=== PATIENT | male | born 1950 | race Caucasian/White ===

== ENCOUNTER 2020-08-21 12:07 | Inpatient (IN) | payer MEDICARE, BC ==
[~2020-08-21] VITALS: Ht 180.3 cm; Wt 107.8 kg
[2020-08-21] MEDS ORDERED: SODIUM CHLORIDE 0.9% 500 ML IV ONE (13:00)
[2020-08-21 14:07] LABS: Basophils # (auto) 0 10 ^3/uL (0-0.2); Basophils % (auto) 0.3 % (0.0-2.0); Eosinophils # (auto) 0 10 ^3/uL (0-0.8); Hematocrit 44.6 % (41.0-53.0); Hemoglobin 15.8 g/dL (13.5-17.5); Lymphocytes # (auto) 0.8 10 ^3/uL (0.4-5.4); Lymphocytes % (auto) 9.3 % (10.0-50.0); Mean Corpuscular Hemoglobin 32.5 pg (28.0-32.0); Mean Corpuscular Hgb Conc. 35.4 g/dL (32.0-36.0); Mean Corpuscular Volume 91.9 fL (80.0-100.0); Monocytes # (auto) 0.7 10 ^3/uL (0-1.3); Monocytes % (auto) 7.8 % (0.0-12.0); Neutrophils # (auto) 6.9 10 ^3/uL (1.6-8.6); Neutrophils % (auto) 82.6 % (37.0-80.0); Nucleated Red Blood Cells % 0.1 %; Platelet Count (auto) 253 10^3/uL (140-450); Red Blood Cells 4.85 10^6/uL (4.5-5.90); Red Cell Distribution Width 12.8 % (11.8-14.3); White Blood Cell 8.4 10^3/uL (4.4-10.8)
[2020-08-21 14:27] LABS: Alanine Aminotransferase 41 U/L (16-61); Albumin 3.5 g/dL (3.4-5.0); Anion Gap 6 (5-15); Aspartate Aminotransferase 63 U/L (15-37); BUN/Creatinine Ratio 19.1; Blood Urea Nitrogen 18 mg/dL (7-18); Calcium 8.3 mg/dL (8.5-10.1); Carbon Dioxide 25 mmol/L (21-32); Chloride 102 mmol/L (98-107); GFR African American 102 mL/min; GFR Non-African American 85 mL/min; Glucose 108 mg/dL (74-106); Potassium 4.4 mmol/L (3.5-5.1); Sodium 133 mmol/L (136-145)
[2020-08-21 14:32] LABS: Alkaline Phosphatase 72 U/L (45-117); Bilirubin, Total 1.2 mg/dL (0.2-1.0); Total Protein 7.7 g/dL (6.4-8.2)
[2020-08-21] MEDS ORDERED: cefTRIAXone 1GM/50ML D5W 50 ML IV ONE (15:45)
[2020-08-21] MEDS ORDERED: MORPHINE SULF INJ 2 MG/ML SYRINGE 1ML IV PRN ×2 (16:15→17:00)
[2020-08-21] MEDS ORDERED: NITROGLYCERIN 0.4 MG SL TAB SL PRN (16:15)
[2020-08-21 16:24] LABS: Lactic Acid w/Reflex 2.2 mmol/L (0.4-2.0)
[2020-08-21] MEDS ORDERED: AZITHROMYCIN 500MG/ 250ML 250 ML IV ONE (16:30)
[2020-08-21] MEDS ORDERED: TEMAZEPAM 15 MG CAP PO PRN (17:00)
[2020-08-21] MEDS ORDERED: LACTULOSE 20Gm/30ML SOLN PO PRN (17:00)
[2020-08-21] MEDS ORDERED: PROMETHAZINE HCL 25 MG/ML 1ML IV PRN (17:00)
[2020-08-21] MEDS ORDERED: ACETAMINOPHEN 500 MG TAB PO PRN (17:00)
[2020-08-21] MEDS ORDERED: REMDESIVIR PER PHARMACY 0 ML IV SCH (17:00)
[2020-08-21] MEDS ORDERED: diphenhdrAMINE HCL 50 MG/1 ML VL IV PRN (17:00)
[2020-08-21] MEDS ORDERED: chlordiazePOXIDE HCL 25 MG CAP PO PRN (19:30)
[2020-08-21] MEDS ORDERED: THIAMINE 100mg/ml INJ (200mg/2ml VIAL) IV ONE (19:30)
[2020-08-21] MEDS ORDERED: REMDESIVIR 200 MG in NS 210ml LOADING DOSE ADULT IV ONE (20:00)
[2020-08-21] MEDS: FAMOTIDINE (10MG/ML) 2ML VL IV SCH (23:00)
[2020-08-21] MEDS: BUDESONIDE (INHALATION) 180 MCG IH IN SCH (23:00)
[2020-08-21] MEDS: ENOXAPARIN SOD 40 MG/0.4 ML SYRINGE SC SCH (23:01)
[2020-08-22] MEDS: chlordiazePOXIDE HCL 5 MG CAP PO SCH ×4 (00:02→18:00)
[2020-08-22] MEDS: ALBUTEROL SULF HFA 90MCG INH 200DOSE IN PRN ×2 (01:10→10:15)
[2020-08-22] MEDS: traMADol HCL 50 MG TAB PO PRN (06:01)
[2020-08-22 08:12] LABS: Basophils # (auto) 0 10 ^3/uL (0-0.2); Basophils % (auto) 0.3 % (0.0-2.0); Eosinophils # (auto) 0 10 ^3/uL (0-0.8); Hemoglobin 14.9 g/dL (13.5-17.5); Lymphocytes # (auto) 0.7 10 ^3/uL (0.4-5.4); Lymphocytes % (auto) 9.6 % (10.0-50.0); Mean Corpuscular Hemoglobin 32.4 pg (28.0-32.0); Mean Corpuscular Hgb Conc. 34.7 g/dL (32.0-36.0); Mean Corpuscular Volume 93.2 fL (80.0-100.0); Monocytes # (auto) 0.7 10 ^3/uL (0-1.3); Monocytes % (auto) 9.4 % (0.0-12.0); Neutrophils # (auto) 5.8 10 ^3/uL (1.6-8.6); Neutrophils % (auto) 80.7 % (37.0-80.0); Platelet Count (auto) 262 10^3/uL (140-450); Red Blood Cells 4.61 10^6/uL (4.5-5.90); Red Cell Distribution Width 12.9 % (11.8-14.3); White Blood Cell 7.1 10^3/uL (4.4-10.8)
[2020-08-22 08:34] LABS: Albumin 2.9 g/dL (3.4-5.0); Calcium 8.3 mg/dL (8.5-10.1); Potassium 3.8 mmol/L (3.5-5.1)
[2020-08-22 09:11] LABS: BUN/Creatinine Ratio 17.3; Bilirubin, Total 1.4 mg/dL (0.2-1.0); Total Protein 7.4 g/dL (6.4-8.2)
[2020-08-22] MEDS: FAMOTIDINE (10MG/ML) 2ML VL IV SCH (09:20)
[2020-08-22] MEDS: DexAMETHasone SOD PHOS 10MG/1ML VIAL INJ IV SCH (09:20)
[2020-08-22] MEDS: CHOLECALCIFEROL (VITD3) 2,000 UNIT CAP PO SCH (09:20)
[2020-08-22] MEDS: ZINC SULFATE 220mg CAP or TAB PO SCH (09:20)
[2020-08-22] MEDS: ASCORBIC ACID 1,000 MG TAB PO SCH (09:20)
[2020-08-22] MEDS: ENOXAPARIN SOD 40 MG/0.4 ML SYRINGE SC SCH ×2 (09:20→22:00)
[2020-08-22] MEDS: THIAMINE 100mg/ml INJ (200mg/2ml VIAL) IV SCH (09:20)
[2020-08-22] MEDS ORDERED: levoFLOXacin 500MG 100 ML IV SCH (10:00)
[2020-08-22] MEDS: BUDESONIDE (INHALATION) 180 MCG IH IN SCH ×2 (10:15→21:20)
[2020-08-22] MEDS: REMDESIVIR 100 MG in SODIUM CHL 0.9% 250 ML IV SCH (15:00)
[2020-08-22 22:00] VITALS: BP 148/101
[2020-08-23] VITALS (8 sets, daily range): BP systolic 126–150; BP diastolic 77–100
[2020-08-23] MEDS: DOXYCYCLINE 100 MG TAB/CAP PO SCH ×3 (00:52→22:46)
[2020-08-23] MEDS: FAMOTIDINE (10MG/ML) 2ML VL IV SCH ×3 (00:52→22:46)
[2020-08-23] MEDS: chlordiazePOXIDE HCL 5 MG CAP PO SCH ×4 (00:53→17:55)
[2020-08-23] MEDS ORDERED: LOSA-39 PO (01:56)
[2020-08-23] MEDS ORDERED: ATEN-60 PO (01:56)
[2020-08-23] MEDS ORDERED: FELO10TA3 PO (01:56)
[2020-08-23] MEDS ORDERED: OMEP20TA PO (01:56)
[2020-08-23] MEDS ORDERED: FINA5TAB4 PO (01:56)
[2020-08-23] MEDS ORDERED: TAMS0.4C36 PO (01:56)
[2020-08-23] MEDS: BUDESONIDE (INHALATION) 180 MCG IH IN SCH ×2 (06:33→18:43)
[2020-08-23 07:28] LABS: Basophils # (auto) 0 10 ^3/uL (0-0.2); Basophils % (auto) 0.3 % (0.0-2.0); Eosinophils # (auto) 0 10 ^3/uL (0-0.8); Eosinophils % (auto) 0.1 % (0.0-7.0); Hematocrit 42.3 % (41.0-53.0); Hemoglobin 14.7 g/dL (13.5-17.5); Lymphocytes # (auto) 0.7 10 ^3/uL (0.4-5.4); Lymphocytes % (auto) 8.7 % (10.0-50.0); Mean Corpuscular Hemoglobin 32.3 pg (28.0-32.0); Mean Corpuscular Hgb Conc. 34.7 g/dL (32.0-36.0); Mean Corpuscular Volume 93.2 fL (80.0-100.0); Monocytes # (auto) 0.7 10 ^3/uL (0-1.3); Monocytes % (auto) 8.3 % (0.0-12.0); Neutrophils # (auto) 6.9 10 ^3/uL (1.6-8.6); Neutrophils % (auto) 82.6 % (37.0-80.0); Platelet Count (auto) 290 10^3/uL (140-450); Red Blood Cells 4.54 10^6/uL (4.5-5.90); Red Cell Distribution Width 12.8 % (11.8-14.3); White Blood Cell 8.3 10^3/uL (4.4-10.8)
[2020-08-23 07:38] LABS: Calcium 8.2 mg/dL (8.5-10.1); Magnesium 2.4 mg/dL (1.6-2.6); Potassium 3.4 mmol/L (3.5-5.1)
[2020-08-23 07:49] LABS: Albumin 2.8 g/dL (3.4-5.0); BUN/Creatinine Ratio 23.6; Bilirubin, Total 1.2 mg/dL (0.2-1.0); CRP High Sensitivity 11.5 mg/dL (< 0.3); Total Protein 7.1 g/dL (6.4-8.2)
[2020-08-23] MEDS: CHOLECALCIFEROL (VITD3) 2,000 UNIT CAP PO SCH (09:14)
[2020-08-23] MEDS: FOLIC ACID 1 MG TAB PO SCH (09:14)
[2020-08-23] MEDS: MULTIPLE VITAMINS W/ MINERALS TAB PO SCH (09:15)
[2020-08-23] MEDS: ZINC SULFATE 220mg CAP or TAB PO SCH (09:15)
[2020-08-23] MEDS: ASCORBIC ACID 1,000 MG TAB PO SCH (09:15)
[2020-08-23] MEDS: ENOXAPARIN SOD 40 MG/0.4 ML SYRINGE SC SCH (09:16)
[2020-08-23] MEDS: FUROSEMIDE 20 MG/2 ML VIAL IV SCH (09:16)
[2020-08-23] MEDS: THIAMINE 100mg/ml INJ (200mg/2ml VIAL) IV SCH (09:17)
[2020-08-23] MEDS: DexAMETHasone SOD PHOS 10MG/1ML VIAL INJ IV SCH (09:17)
[2020-08-23] MEDS ORDERED: ENOXAPARIN SOD 80 MG/0.8ML SYRINGE SC ONE (10:15)
[2020-08-23] MEDS ORDERED: POTASSIUM CHL 20 Meq TABLET PO ONE (10:15)
[2020-08-23] MEDS ORDERED: amLODIPine BESYLATE 5 MG TAB PO ONE (14:30)
[2020-08-23] MEDS ORDERED: ATENOLOL 50 MG TAB PO ONE (14:30)
[2020-08-23] MEDS: REMDESIVIR 100 MG in SODIUM CHL 0.9% 250 ML IV SCH (15:00)
[2020-08-23] MEDS: ALBUTEROL SULF HFA 90MCG INH 200DOSE IN PRN (18:43)
[2020-08-23] MEDS: traMADol HCL 50 MG TAB PO PRN (19:43)
[2020-08-23] MEDS: ENOXAPARIN SOD 120 MG/0.8 ML SYRINGE SC SCH (22:46)
[2020-08-24] MEDS: chlordiazePOXIDE HCL 5 MG CAP PO SCH ×5 (00:21→23:21)
[2020-08-24 05:00] VITALS: BP 146/89
[2020-08-24] MEDS: ALBUTEROL SULF HFA 90MCG INH 200DOSE IN PRN ×2 (06:33→19:23)
[2020-08-24 07:15] LABS: Basophils # (auto) 0 10 ^3/uL (0-0.2); Basophils % (auto) 0.2 % (0.0-2.0); Eosinophils # (auto) 0 10 ^3/uL (0-0.8); Eosinophils % (auto) 0.1 % (0.0-7.0); Hematocrit 44.1 % (41.0-53.0); Hemoglobin 15.3 g/dL (13.5-17.5); Lymphocytes # (auto) 1.1 10 ^3/uL (0.4-5.4); Mean Corpuscular Hemoglobin 32.4 pg (28.0-32.0); Mean Corpuscular Hgb Conc. 34.7 g/dL (32.0-36.0); Mean Corpuscular Volume 93.2 fL (80.0-100.0); Monocytes # (auto) 0.8 10 ^3/uL (0-1.3); Monocytes % (auto) 7.6 % (0.0-12.0); Neutrophils # (auto) 8.8 10 ^3/uL (1.6-8.6); Neutrophils % (auto) 82.1 % (37.0-80.0); Nucleated Red Blood Cells % 0.1 %; Platelet Count (auto) 380 10^3/uL (140-450); Red Blood Cells 4.73 10^6/uL (4.5-5.90); Red Cell Distribution Width 12.7 % (11.8-14.3); White Blood Cell 10.8 10^3/uL (4.4-10.8)
[2020-08-24 07:41] LABS: Calcium 8.8 mg/dL (8.5-10.1); Potassium 3.6 mmol/L (3.5-5.1)
[2020-08-24 07:43] LABS: BUN/Creatinine Ratio 25.3
[2020-08-24 07:46] LABS: Total Protein 7.5 g/dL (6.4-8.2)
[2020-08-24 09:00] VITALS: BP 137/92
[2020-08-24] MEDS ORDERED: ERGOCALCIFEROL 50,000 UNIT(1.25MG) CAP PO SCH (10:00)
[2020-08-24] MEDS: ENOXAPARIN SOD 120 MG/0.8 ML SYRINGE SC SCH ×2 (10:19→22:33)
[2020-08-24] MEDS: FAMOTIDINE (10MG/ML) 2ML VL IV SCH ×2 (10:19→22:32)
[2020-08-24] MEDS: THIAMINE 100mg/ml INJ (200mg/2ml VIAL) IV SCH (10:19)
[2020-08-24] MEDS: FUROSEMIDE 20 MG/2 ML VIAL IV SCH (10:19)
[2020-08-24] MEDS: DexAMETHasone SOD PHOS 10MG/1ML VIAL INJ IV SCH (10:19)
[2020-08-24] MEDS: FOLIC ACID 1 MG TAB PO SCH (10:20)
[2020-08-24] MEDS: DOXYCYCLINE 100 MG TAB/CAP PO SCH ×2 (10:20→22:32)
[2020-08-24] MEDS: ZINC SULFATE 220mg CAP or TAB PO SCH (10:20)
[2020-08-24] MEDS: MULTIPLE VITAMINS W/ MINERALS TAB PO SCH (10:20)
[2020-08-24] MEDS: FINASTERIDE 5 MG TAB PO SCH (10:20)
[2020-08-24] MEDS: LOSARTAN POTASSIUM 50 MG TAB PO SCH (10:21)
[2020-08-24] MEDS: amLODIPine BESYLATE 5 MG TAB PO SCH (10:21)
[2020-08-24] MEDS: ATENOLOL 50 MG TAB PO SCH (10:22)
[2020-08-24] MEDS: CHOLECALCIFEROL (VITD3) 2,000 UNIT CAP PO SCH (10:22)
[2020-08-24] MEDS: ASCORBIC ACID 1,000 MG TAB PO SCH (10:22)
[2020-08-24 13:00] VITALS: BP 113/88
[2020-08-24] MEDS: REMDESIVIR 100 MG in SODIUM CHL 0.9% 250 ML IV SCH (15:05)
[2020-08-24 17:00] VITALS: BP 124/86
[2020-08-24] MEDS: BUDESONIDE (INHALATION) 180 MCG IH IN SCH (19:23)
[2020-08-24 21:45] VITALS: BP 133/81
[2020-08-24] MEDS: traMADol HCL 50 MG TAB PO PRN (22:37)
[2020-08-25 05:00] VITALS: BP 126/79
[2020-08-25] MEDS: BUDESONIDE (INHALATION) 180 MCG IH IN SCH ×2 (06:36→21:01)
[2020-08-25] MEDS: ALBUTEROL SULF HFA 90MCG INH 200DOSE IN PRN ×2 (06:36→21:01)
[2020-08-25] MEDS: chlordiazePOXIDE HCL 5 MG CAP PO SCH ×4 (06:47→23:46)
[2020-08-25 06:57] LABS: Potassium 3.6 mmol/L (3.5-5.1)
[2020-08-25 07:29] LABS: Albumin 2.9 g/dL (3.4-5.0); BUN/Creatinine Ratio 24.4; Bilirubin, Total 1.1 mg/dL (0.2-1.0); Calcium 8.5 mg/dL (8.5-10.1); Total Protein 7.4 g/dL (6.4-8.2)
[2020-08-25 08:30] VITALS: BP 129/82
[2020-08-25] MEDS: DexAMETHasone SOD PHOS 10MG/1ML VIAL INJ IV SCH (10:20)
[2020-08-25] MEDS: THIAMINE 100mg/ml INJ (200mg/2ml VIAL) IV SCH (10:20)
[2020-08-25] MEDS: ZINC SULFATE 220mg CAP or TAB PO SCH (10:21)
[2020-08-25] MEDS: FUROSEMIDE 20 MG/2 ML VIAL IV SCH (10:21)
[2020-08-25] MEDS: FOLIC ACID 1 MG TAB PO SCH (10:21)
[2020-08-25] MEDS: FAMOTIDINE (10MG/ML) 2ML VL IV SCH ×2 (10:21→22:51)
[2020-08-25] MEDS: amLODIPine BESYLATE 5 MG TAB PO SCH (10:22)
[2020-08-25] MEDS: LOSARTAN POTASSIUM 50 MG TAB PO SCH (10:22)
[2020-08-25] MEDS: MULTIPLE VITAMINS W/ MINERALS TAB PO SCH (10:22)
[2020-08-25] MEDS: FINASTERIDE 5 MG TAB PO SCH (10:22)
[2020-08-25] MEDS: ATENOLOL 50 MG TAB PO SCH (10:23)
[2020-08-25] MEDS: DOXYCYCLINE 100 MG TAB/CAP PO SCH ×2 (10:23→22:51)
[2020-08-25] MEDS: ASCORBIC ACID 1,000 MG TAB PO SCH (10:23)
[2020-08-25] MEDS: ENOXAPARIN SOD 120 MG/0.8 ML SYRINGE SC SCH ×2 (10:24→22:51)
[2020-08-25] MEDS: CHOLECALCIFEROL (VITD3) 2,000 UNIT CAP PO SCH (10:24)
[2020-08-25] MEDS ORDERED: LOPERAMIDE HCL 2 MG CAP PO ONE (13:30)
[2020-08-25] MEDS: REMDESIVIR 100 MG in SODIUM CHL 0.9% 250 ML IV SCH (15:40)
[2020-08-25 16:16] VITALS: BP 121/73
[2020-08-25] MEDS: traMADol HCL 50 MG TAB PO PRN (20:51)
[2020-08-25 22:00] VITALS: BP 130/80
[2020-08-26 05:25] VITALS: BP 113/77
[2020-08-26] MEDS: chlordiazePOXIDE HCL 5 MG CAP PO SCH ×3 (06:24→17:46)
[2020-08-26 06:29] LABS: Potassium 4.5 mmol/L (3.5-5.1)
[2020-08-26 06:44] LABS: Albumin 2.8 g/dL (3.4-5.0); Calcium 8.6 mg/dL (8.5-10.1); Total Protein 7.2 g/dL (6.4-8.2)
[2020-08-26 09:00] VITALS: BP 106/81
[2020-08-26] MEDS: THIAMINE 100mg/ml INJ (200mg/2ml VIAL) IV SCH (10:14)
[2020-08-26] MEDS: DexAMETHasone SOD PHOS 10MG/1ML VIAL INJ IV SCH (10:14)
[2020-08-26] MEDS: FUROSEMIDE 20 MG/2 ML VIAL IV SCH (10:14)
[2020-08-26] MEDS: FAMOTIDINE (10MG/ML) 2ML VL IV SCH ×2 (10:14→22:00)
[2020-08-26] MEDS: ZINC SULFATE 220mg CAP or TAB PO SCH (10:15)
[2020-08-26] MEDS: LOSARTAN POTASSIUM 50 MG TAB PO SCH (10:15)
[2020-08-26] MEDS: FOLIC ACID 1 MG TAB PO SCH (10:15)
[2020-08-26] MEDS: FINASTERIDE 5 MG TAB PO SCH (10:16)
[2020-08-26] MEDS: amLODIPine BESYLATE 5 MG TAB PO SCH (10:16)
[2020-08-26] MEDS: MULTIPLE VITAMINS W/ MINERALS TAB PO SCH (10:16)
[2020-08-26] MEDS: ENOXAPARIN SOD 120 MG/0.8 ML SYRINGE SC SCH ×2 (10:17→22:00)
[2020-08-26] MEDS: DOXYCYCLINE 100 MG TAB/CAP PO SCH ×2 (10:17→22:00)
[2020-08-26] MEDS: ATENOLOL 50 MG TAB PO SCH (10:17)
[2020-08-26] MEDS: CHOLECALCIFEROL (VITD3) 2,000 UNIT CAP PO SCH (10:17)
[2020-08-26] MEDS: ASCORBIC ACID 1,000 MG TAB PO SCH (10:17)
[2020-08-26] MEDS: BUDESONIDE (INHALATION) 180 MCG IH IN SCH ×2 (11:25→22:00)
[2020-08-26] MEDS ORDERED: LOPERAMIDE HCL 2 MG CAP PO ONE (12:15)
[2020-08-26 15:55] VITALS: BP 107/63
[2020-08-26 21:42] VITALS: BP 110/64
[2020-08-27] MEDS: chlordiazePOXIDE HCL 5 MG CAP PO SCH ×3 (02:04→12:00)
[2020-08-27 04:45] VITALS: BP 111/71
[2020-08-27 08:00] VITALS: BP 110/77
[2020-08-27] MEDS: THIAMINE 100mg/ml INJ (200mg/2ml VIAL) IV SCH (10:45)
[2020-08-27] MEDS: BUDESONIDE (INHALATION) 180 MCG IH IN SCH (10:45)
[2020-08-27] MEDS: DexAMETHasone SOD PHOS 10MG/1ML VIAL INJ IV SCH (10:45)
[2020-08-27] MEDS: LOSARTAN POTASSIUM 50 MG TAB PO SCH (10:46)
[2020-08-27] MEDS: FUROSEMIDE 20 MG/2 ML VIAL IV SCH (10:46)
[2020-08-27] MEDS: CHOLECALCIFEROL (VITD3) 2,000 UNIT CAP PO SCH (10:47)
[2020-08-27] MEDS: amLODIPine BESYLATE 5 MG TAB PO SCH (10:47)
[2020-08-27] MEDS: ASCORBIC ACID 1,000 MG TAB PO SCH (10:47)
[2020-08-27] MEDS: ATENOLOL 50 MG TAB PO SCH (10:47)
[2020-08-27] MEDS: DOXYCYCLINE 100 MG TAB/CAP PO SCH (10:47)
[2020-08-27] MEDS: FINASTERIDE 5 MG TAB PO SCH (10:47)
[2020-08-27] MEDS: MULTIPLE VITAMINS W/ MINERALS TAB PO SCH (10:48)
[2020-08-27] MEDS: FAMOTIDINE (10MG/ML) 2ML VL IV SCH (10:48)
[2020-08-27] MEDS: FOLIC ACID 1 MG TAB PO SCH (10:48)
[2020-08-27] MEDS: ENOXAPARIN SOD 120 MG/0.8 ML SYRINGE SC SCH (10:48)
[2020-08-27] MEDS: ZINC SULFATE 220mg CAP or TAB PO SCH (10:48)
[2020-08-27 13:34] VITALS: BP 110/77
== END 2020-08-27 14:35 | disposition home or self-care (01) | DRG 177 ==
LOC: EDBD 12:07 → ER 12:07 → TELE 16:11 → TELE-EAST 08-22 22:59
PROVIDERS: ADMIT Internal Medicine; ATTEND Internal Medicine
PROC: XW033E5 Introduction of Remdesivir Anti-infective into Peripheral Vein, Percutaneous Approach, New Technology Group 5 (ICD-10-PCS; 2020-08-21)
PROC: XW13325 Transfusion of Convalescent Plasma (Nonautologous) into Peripheral Vein, Percutaneous Approach, New Technology Group 5 (ICD-10-PCS; principal; 2020-08-23)
DX: U07.1 COVID-19 (principal); J12.89 Other viral pneumonia; J96.01 Acute respiratory failure with hypoxia; E87.1 Hypo-osmolality and hyponatremia; E44.0 Moderate protein-calorie malnutrition; D68.59 Other primary thrombophilia; E66.9 Obesity, unspecified; I10 Essential (primary) hypertension; E55.9 Vitamin D deficiency, unspecified; F10.10 Alcohol abuse, uncomplicated; Z68.33 Body mass index [BMI] 33.0-33.9, adult; Z79.899 Other long term (current) drug therapy
CPT/HCPCS: 36415; 71045; 80053; 82306; 82728; 83605; 83615; 83735; 83880; 84484; 85025; 85379; 86141; 86850; 86900; 86901; 87040; 87426; 94640; 96361; 96365; 96367; 96375; G0378; J0696; J1100; J1956; J3490

== ENCOUNTER 2023-06-04 09:39 | Inpatient (IN) | payer MEDICARE, BC ==
[2023-05-31 14:08] LABS: Basophils # (auto) 0.1 10 ^3/uL (0-0.2); Basophils % (auto) 1.2 % (0.0-2.0); Eosinophils # (auto) 0.1 10 ^3/uL (0-0.8); Monocytes # (auto) 0.6 10 ^3/uL (0-1.3); Neutrophils # (auto) 3.5 10 ^3/uL (1.6-8.6); Nucleated Red Blood Cells % 0.1 %; Red Cell Distribution Width 12.8 % (11.8-14.3)
[2023-05-31 14:09] LABS: Eosinophils % (auto) 2.4 % (0.0-7.0); Hematocrit 43.9 % (41.0-53.0); Hemoglobin 15.6 g/dL (13.5-17.5); Lymphocytes # (auto) 1.8 10 ^3/uL (0.4-5.4); Mean Corpuscular Hemoglobin 34.1 pg (28.0-32.0); Mean Corpuscular Hgb Conc. 35.7 g/dL (32.0-36.0); Mean Corpuscular Volume 95.7 fL (80.0-100.0); Monocytes % (auto) 10.2 % (0.0-12.0); Neutrophils % (auto) 57.2 % (37.0-80.0); Red Blood Cells 4.59 10^6/uL (4.5-5.90)
[2023-05-31 14:22] LABS: INR 1.04 (0.9-1.15); Partial Thromboplastin Time 27.4 SEC (24.5-34.5); Prothrombin Time 10.9 sec (9.3-11.8)
[2023-05-31 14:30] LABS: Urine Bacteria NONE SEEN /hpf (None Seen); Urine Blood Negative /uL (Negative); Urine Clarity Clear (Clear); Urine Color Yellow (Yellow); Urine Protein, UAD Negative (Negative); Urine Specific Gravity 1.018 (1.001-1.035); Urine Urobilinogen Normal (Negative); Urine WBC 1 /hpf (0 - 3); Urine pH 5.5 (5.0-8.0)
[2023-05-31 14:37] LABS: Alanine Aminotransferase 83 U/L (7-40); Albumin 4.7 g/dL (3.2-4.8); Alkaline Phosphatase 68 U/L (46-116); Anion Gap 6 (5-15); Aspartate Aminotransferase 53 U/L (13-40); BUN/Creatinine Ratio 13.8 (10.0-20.0); Blood Urea Nitrogen 12 mg/dL (9-23); Calcium 9.3 mg/dL (8.7-10.4); Carbon Dioxide 27 mmol/L (20-30); Chloride 107 mmol/L (98-107); Glucose 130 mg/dL (74-106); Potassium 4.1 mmol/L (3.5-5.1); Sodium 140 mmol/L (136-145)
[2023-05-31 14:38] LABS: Bilirubin, Total 0.8 mg/dL (0.2-1.0); Total Protein 7.4 g/dL (5.7-8.2)
[~2023-06-04] VITALS: Ht 180.3 cm; Wt 110.5 kg
[~2023-06-04 09:39] MED LIST: ATEN-60 PO; FELO10TA28 PO; FINA5TAB4 PO; LOSA100T58 PO; OMEP20TA PO; TAMS0.4C36 PO
[2023-06-04] MEDS ORDERED: ceFAZolin 1GM/50ML 100 ML IV ONE (09:54)
[2023-06-04] MEDS ORDERED: ceFAZolin 1GM/50ML 50 ML IV ONE (09:59)
[2023-06-04] MEDS ORDERED: LIDOCAINE W/ EPINEPHRINE 1% 20ML VIAL ONE ×4 (12:27→14:29)
[2023-06-04] MEDS ORDERED: TRANEXAMIC ACID 20 ML ONE (12:27)
[2023-06-04] MEDS ORDERED: fentaNYL CITRATE 100 MCG/2 ML VL ONE ×4 (12:47→15:50)
[2023-06-04] MEDS ORDERED: PROPOFOL 10 MG/ML 20 ML IV ONE ×3 (12:48→16:26)
[2023-06-04] MEDS ORDERED: SUCCINYLCHOLINE CHLORIDE 20 MG/ML 10ML VIAL IV ONE (12:54)
[2023-06-04] MEDS ORDERED: ONDANSETRON HCL 4 MG/2 ML VIAL ONE ×2 (14:18→15:59)
[2023-06-04] MEDS ORDERED: ePHEDrine SULFATE 50 MG/ML AMP ONE (14:21)
[2023-06-04] MEDS ORDERED: SODIUM CHLORIDE LOCK 10 ML ONE (15:51)
[2023-06-04] MEDS ORDERED: DexAMETHasone SOD PHOS 10MG/1ML VIAL INJ ONE (15:59)
[2023-06-04] MEDS ORDERED: MORPHINE SULFATE INJ 2 MG/ml SYRG IV PRN (17:00)
[2023-06-04] MEDS ORDERED: HYDROcodone-ACET 10/325MG TAB PO PRN (17:00)
[2023-06-04] MEDS ORDERED: ceFAZolin 1GM/50ML 50 ML IV SCH (17:00)
[2023-06-04] MEDS ORDERED: NITROGLYCERIN 0.4 MG SL TAB SL PRN (17:00)
[2023-06-04] MEDS ORDERED: ACETAMINOPHEN 325 MG TAB PO PRN (17:00)
[2023-06-04 17:06] VITALS: O2SAT 96
[2023-06-04] MEDS ORDERED: NALOXONE HCL 0.4 MG/ML VIAL IV PRN (17:15)
[2023-06-04] MEDS ORDERED: hydrALAZINE HCL 20 MG/ML VL IV PRN ×2 (17:15→18:30)
[2023-06-04] MEDS ORDERED: fentaNYL CITRATE 100 MCG/2 ML VL IV PRN (17:15)
[2023-06-04] MEDS ORDERED: LABETALOL HCL 5 MG/ML 4ML SYRINGE IV PRN (17:15)
[2023-06-04] MEDS ORDERED: ePHEDrine SULFATE 50 MG/ML AMP IV PRN (17:15)
[2023-06-04] MEDS ORDERED: FLUMAZENIL 0.1 MG/ML INJ 10ML MDV IV PRN (17:15)
[2023-06-04] MEDS ORDERED: ONDANSETRON HCL 4 MG/2 ML VIAL IV PRN (17:15)
[2023-06-04] MEDS ORDERED: HYDROmorphone HCL 2 MG/ML VL/or syr IV PRN (17:15)
[2023-06-04] MEDS: CYCLOBENZAPRINE HCL 10 MG TAB PO SCH (17:30)
[2023-06-04] MEDS: oxyCODONE HCL 5MG TAB PO PRN (17:34)
[2023-06-04] MEDS ORDERED: LOSARTAN POTASSIUM 50 MG TAB PO ONE (17:45)
[2023-06-04] MEDS ORDERED: TAMSULOSIN HYDROCHLORIDE 0.4 MG CAP PO SCH (18:00)
[2023-06-04 18:35] VITALS: BP 130/75; PULSE 66; RESP 18; TEMP 98; O2SAT 96
[2023-06-04 20:00] VITALS: BP 130/75; PULSE 66; PULSE 71; RESP 18; TEMP 98
[2023-06-04] MEDS: TAMSULOSIN HYDROCHLORIDE 0.4 MG CAP PO SCH (20:37)
[2023-06-04] MEDS: D5W/SOD CHLO 0.9% 1,000 ML IV SCH (20:39)
[2023-06-04] MEDS: ceFAZolin 1GM/50ML 50 ML IV SCH (20:40)
[2023-06-04] MEDS: DOCUSATE SOD 100 MG CAP PO SCH (20:42)
[2023-06-04 22:00] VITALS: BP 144/86; PULSE 76; RESP 17; TEMP 97.1; O2SAT 96
[2023-06-05] VITALS (7 sets, daily range): BP systolic 107–134; BP diastolic 67–76; PULSE 71–88; RESP 18–22; TEMP 97.7–100.4; O2SAT 96–98
[2023-06-05] MEDS: CYCLOBENZAPRINE HCL 10 MG TAB PO SCH ×3 (05:24→22:13)
[2023-06-05] MEDS: ceFAZolin 1GM/50ML 50 ML IV SCH (05:24)
[2023-06-05] MEDS: D5W/SOD CHLO 0.9% 1,000 ML IV SCH ×2 (05:40→15:09)
[2023-06-05] MEDS: FINASTERIDE 5 MG TAB PO SCH (09:21)
[2023-06-05] MEDS: DOCUSATE SOD 100 MG CAP PO SCH ×2 (09:21→22:13)
[2023-06-05] MEDS: ATENOLOL 25 MG TAB PO SCH (09:22)
[2023-06-05] MEDS ORDERED: LOSARTAN POTASSIUM 50 MG TAB PO SCH (10:00)
[2023-06-05] MEDS: MORPHINE SULFATE INJ 2 MG/ml SYRG IV PRN ×2 (15:30→22:12)
[2023-06-05] MEDS ORDERED: FIN5T PO (17:30)
[2023-06-05] MEDS ORDERED: LOSA100T58 PO (17:30)
[2023-06-05] MEDS ORDERED: FELO10TA28 PO (17:30)
[2023-06-05] MEDS ORDERED: ATEN50TA PO (17:30)
[2023-06-05] MEDS ORDERED: IBUP-1454 PO (17:30)
[2023-06-05] MEDS ORDERED: TAMS0.4C36 PO (17:30)
[2023-06-05] MEDS ORDERED: ALPR1TAB7 PO (17:30)
[2023-06-05] MEDS ORDERED: OME20GT PO (17:30)
[2023-06-05] MEDS ORDERED: NUTRPAK PO (17:30)
[2023-06-05] MEDS ORDERED: ACETAMINOPHEN 325 MG TAB PO PRN (17:45)
[2023-06-05] MEDS: TAMSULOSIN HYDROCHLORIDE 0.4 MG CAP PO SCH (18:00)
[2023-06-05] MEDS: ONDANSETRON HCL 4 MG/2 ML VIAL IV PRN (22:02)
[2023-06-06] VITALS (7 sets, daily range): BP systolic 110–156; BP diastolic 65–82; PULSE 67–106; RESP 17–20; TEMP 98.1–99.7; O2SAT 90–97
[2023-06-06] MEDS: CYCLOBENZAPRINE HCL 10 MG TAB PO SCH ×3 (05:40→22:05)
[2023-06-06] MEDS: D5W/SOD CHLO 0.9% 1,000 ML IV SCH (05:47)
[2023-06-06 06:41] LABS: Basophils # (auto) 0 10 ^3/uL (0-0.2); Basophils % (auto) 0.4 % (0.0-2.0); Eosinophils # (auto) 0 10 ^3/uL (0-0.8); Eosinophils % (auto) 0.4 % (0.0-7.0); Lymphocytes # (auto) 1.2 10 ^3/uL (0.4-5.4); Lymphocytes % (auto) 11.4 % (10.0-50.0); Mean Corpuscular Hemoglobin 33.5 pg (28.0-32.0); Mean Corpuscular Hgb Conc. 34.3 g/dL (32.0-36.0); Mean Corpuscular Volume 97.5 fL (80.0-100.0); Monocytes # (auto) 1.1 10 ^3/uL (0-1.3); Monocytes % (auto) 10.7 % (0.0-12.0); Neutrophils # (auto) 7.8 10 ^3/uL (1.6-8.6); Neutrophils % (auto) 77.1 % (37.0-80.0); Red Cell Distribution Width 12.9 % (11.8-14.3); White Blood Cell 10.2 10^3/uL (4.4-10.8)
[2023-06-06 07:10] LABS: Alanine Aminotransferase 51 U/L (7-40); Albumin 3.9 g/dL (3.2-4.8); Alkaline Phosphatase 50 U/L (46-116); Anion Gap 6 (5-15); Aspartate Aminotransferase 84 U/L (13-40); BUN/Creatinine Ratio 10.6 (10.0-20.0); Bilirubin, Total 1.4 mg/dL (0.2-1.0); Blood Urea Nitrogen 7 mg/dL (9-23); Calcium 8.5 mg/dL (8.5-10.1); Carbon Dioxide 27 mmol/L (20-30); Chloride 105 mmol/L (98-107); Glucose 121 mg/dL (74-106); Potassium 3.7 mmol/L (3.5-5.1); Sodium 138 mmol/L (136-145); Total Protein 6.2 g/dL (5.7-8.2)
[2023-06-06] MEDS: DOCUSATE SOD 100 MG CAP PO SCH ×2 (10:08→22:04)
[2023-06-06] MEDS: LOSARTAN POTASSIUM 50 MG TAB PO SCH (10:09)
[2023-06-06] MEDS: FINASTERIDE 5 MG TAB PO SCH (10:09)
[2023-06-06] MEDS: ATENOLOL 25 MG TAB PO SCH (10:09)
[2023-06-06] MEDS: MORPHINE SULFATE INJ 2 MG/ml SYRG IV PRN ×3 (10:10→20:29)
[2023-06-06] MEDS: oxyCODONE HCL 5MG TAB PO PRN ×3 (12:28→22:04)
[2023-06-06] MEDS: TAMSULOSIN HYDROCHLORIDE 0.4 MG CAP PO SCH (18:12)
[2023-06-06] MEDS: ONDANSETRON HCL 4 MG/2 ML VIAL IV PRN (20:19)
[2023-06-07 05:00] VITALS: BP 131/69; PULSE 77; RESP 20; TEMP 98.1; O2SAT 90
[2023-06-07] MEDS: CYCLOBENZAPRINE HCL 10 MG TAB PO SCH ×2 (06:30→13:25)
[2023-06-07 06:51] LABS: Basophils # (auto) 0 10 ^3/uL (0-0.2); Basophils % (auto) 0.3 % (0.0-2.0); Eosinophils # (auto) 0 10 ^3/uL (0-0.8); Eosinophils % (auto) 0.2 % (0.0-7.0); Hematocrit 38.7 % (41.0-53.0); Hemoglobin 13.5 g/dL (13.5-17.5); Lymphocytes # (auto) 1.4 10 ^3/uL (0.4-5.4); Lymphocytes % (auto) 12.7 % (10.0-50.0); Mean Corpuscular Hemoglobin 33.6 pg (28.0-32.0); Mean Corpuscular Volume 96.2 fL (80.0-100.0); Monocytes # (auto) 1.4 10 ^3/uL (0-1.3); Neutrophils # (auto) 8.5 10 ^3/uL (1.6-8.6); Neutrophils % (auto) 74.8 % (37.0-80.0); Red Blood Cells 4.02 10^6/uL (4.5-5.90); Red Cell Distribution Width 12.8 % (11.8-14.3); White Blood Cell 11.4 10^3/uL (4.4-10.8)
[2023-06-07 07:01] LABS: Alanine Aminotransferase 48 U/L (7-40); Albumin 4.3 g/dL (3.2-4.8); Alkaline Phosphatase 55 U/L (46-116); Anion Gap 9 (5-15); Aspartate Aminotransferase 63 U/L (13-40); BUN/Creatinine Ratio 9.9 (10.0-20.0); Bilirubin, Total 3.1 mg/dL (0.2-1.0); Blood Urea Nitrogen 7 mg/dL (9-23); Carbon Dioxide 25 mmol/L (20-30); Chloride 100 mmol/L (98-107); Glucose 121 mg/dL (74-106); Potassium 3.8 mmol/L (3.5-5.1); Sodium 134 mmol/L (136-145)
[2023-06-07] MEDS: MORPHINE SULFATE INJ 2 MG/ml SYRG IV PRN (07:06)
[2023-06-07 08:00] VITALS: BP 120/70; PULSE 76; PULSE 77; RESP 20; TEMP 98.3; O2SAT 95
[2023-06-07] MEDS: LOSARTAN POTASSIUM 50 MG TAB PO SCH (08:28)
[2023-06-07] MEDS: FINASTERIDE 5 MG TAB PO SCH (08:28)
[2023-06-07] MEDS: DOCUSATE SOD 100 MG CAP PO SCH (08:28)
[2023-06-07] MEDS: ATENOLOL 25 MG TAB PO SCH (08:29)
[2023-06-07 09:00] VITALS: BP 120/70; PULSE 76; RESP 20; O2SAT 95
[2023-06-07] MEDS: oxyCODONE HCL 5MG TAB PO PRN ×2 (09:12→13:25)
[2023-06-07 13:00] VITALS: BP 133/95; PULSE 65; RESP 19; TEMP 98.5; O2SAT 90
[2023-06-07] MEDS ORDERED: CYCL-837 PO ×4 (16:30→17:33)
[2023-06-07 16:49] VITALS: BP 128/77; PULSE 81; RESP 19; TEMP 98.5; O2SAT 92
[2023-06-07 16:57] VITALS: BP 128/77; PULSE 82; RESP 19; TEMP 98.5; O2SAT 92
[2023-06-07] MEDS: TAMSULOSIN HYDROCHLORIDE 0.4 MG CAP PO SCH (17:38)
== END 2023-06-07 18:23 | disposition home or self-care (01) | DRG 460 ==
LOC: SUR 09:39 → TELE 16:49 → TELE-WESTW 18:50
PROVIDERS: ADMIT Orthopaedic Surgery; ATTEND Internal Medicine
PROC: 00NY0ZZ Release Lumbar Spinal Cord, Open Approach (ICD-10-PCS; 2023-06-04)
PROC: 01NB0ZZ Release Lumbar Nerve, Open Approach (ICD-10-PCS; 2023-06-04)
PROC: 4A11X4G Monitoring of Peripheral Nervous Electrical Activity, Intraoperative, External Approach (ICD-10-PCS; 2023-06-04)
PROC: 0SG10AJ Fusion of 2 or more Lumbar Vertebral Joints with Interbody Fusion Device, Posterior Approach, Anterior Column, Open Approach (ICD-10-PCS; principal; 2023-06-04 13:34)
DX: M48.062 Spinal stenosis, lumbar region with neurogenic claudication (principal); M62.838 Other muscle spasm; N40.0 Benign prostatic hyperplasia without lower urinary tract symptoms; E66.9 Obesity, unspecified; Z68.34 Body mass index [BMI] 34.0-34.9, adult; I10 Essential (primary) hypertension; R74.01 Elevation of levels of liver transaminase levels; M96.1 Postlaminectomy syndrome, not elsewhere classified; Y83.8 Other surgical procedures as the cause of abnormal reaction of the patient, or of later complication, without mention of misadventure at the time of the procedure; M54.16 Radiculopathy, lumbar region; Z81.8 Family history of other mental and behavioral disorders; Z98.1 Arthrodesis status
CPT/HCPCS: 36415; 72100; 76000; 80053; 81001; 85025; 85610; 85730; 86850; 86900; 86901; 97110; 97116; 97163; 97530; G0378; J0330; J0690; J1100; J2405; J2704; J7042